=== PATIENT | female | born 1990 | race Native Hawaiian/Other Pacific Islander ===

== ENCOUNTER 2017-05-01 18:44 | Emergency (ER) | payer OTHER ==
[~2017-05-01] VITALS: Ht 175.3 cm; Wt 77.1 kg
[2017-05-01 21:26] VITALS: BP 151/92; TEMP 98.4
== END 2017-05-01 21:27 | disposition home or self-care (01) ==
LOC: ED 18:44
DX: S90.02XA Contusion of left ankle, initial encounter (principal); S90.32XA Contusion of left foot, initial encounter; S80.12XA Contusion of left lower leg, initial encounter; S70.12XA Contusion of left thigh, initial encounter; V86.99XA Unspecified occupant of other special all-terrain or other off-road motor vehicle injured in nontraffic accident, initial encounter; Y92.098 Other place in other non-institutional residence as the place of occurrence of the external cause
CPT/HCPCS: 99283